=== PATIENT | female | born 1925 | race Two or more races ===

== ENCOUNTER 2016-07-22 12:01 | Inpatient (IN) | payer OTHER ==
[~2016-07-22] VITALS: Ht 149.9 cm; Wt 54.4 kg
[2016-07-22 12:14] VITALS: BP 132/58
[2016-07-22] MEDS ORDERED: MAG HYDROX/AL HYDROX/SIMETH 30 ML UDC PO PRN (14:00)
[2016-07-22] MEDS ORDERED: ACETAMINOPHEN 325 MG TABLET PO PRN (14:00)
[2016-07-22] MEDS ORDERED: Z GUARD REMEDY 2 OZ OINT TP PRN (14:00)
[2016-07-22] MEDS ORDERED: ONDANSETRON HCL/PF 4 MG/2 ML VIAL IVP PRN (14:00)
[2016-07-22] MEDS ORDERED: IV SET PRIMARY PUMP SET 1 EA INFUS.SET MC ONE (14:54)
[2016-07-22] MEDS: IV NS 0.9% 1,000 ML IV PRN (14:58)
[2016-07-22 16:00] VITALS: BP 142/71
[2016-07-22] MEDS: HYDROCODONE/APAP 5/325MG 1 EACH TABLET PO PRN (16:08)
[2016-07-22] MEDS ORDERED: DEXTROSE 50%-WATER 50 ML DISP.SYRIN IV PRN (16:30)
[2016-07-22 17:00] VITALS: BP 146/82
[2016-07-22 17:23] LABS: BASOPHILS % (AUTO) 0.5 % (0.0-2.0); DIFF TOTAL % 100 %; EOSINOPHILS % (AUTO) 0.3 % (0.0-6.0); HEMATOCRIT 35 % (33-45); HEMOGLOBIN 11.6 g/dL (11.5-14.8); LYMPHOCYTES # (AUTO) 0.4 /CMM (0.8-4.8); LYMPHOCYTES % (AUTO) 5.3 % (20.0-44.0); MEAN CORPUSCULAR HEMOGLOBIN 29 PG (26.0-33.0); MEAN CORPUSCULAR HGB CONC 33 g/dl (31.0-36.0); MEAN CORPUSCULAR VOLUME 87 fL (82-100); MONOCYTES # (AUTO) 0.3 /CMM (0.1-1.30); MONOCYTES % (AUTO) 4.2 % (2.0-12.0); NEUTROPHILS # (AUTO) 7.2 /CMM (1.8-8.9); NEUTROPHILS % (AUTO) 89.7 % (43.0-81.0); PLATELET COUNT (AUTO) 249 /CMM (150-450); RED BLOOD CELL COUNT(AUTO) 4.03 MIL/uL (4.0-5.2); WHITE BLOOD COUNT (AUTO) 8.1 K/uL (4.3-11.0)
[2016-07-22 17:32] LABS: CALCIUM, SERUM 8.4 mg/dL (8.5-10.1); CREATININE 1.2 mg/dL (0.6-1.3); POTASSIUM 3.8 mmol/L (3.5-5.1)
[2016-07-22] MEDS ORDERED: ASPI-605 PO (17:36)
[2016-07-22] MEDS ORDERED: METF500T4 PO (17:36)
[2016-07-22] MEDS ORDERED: SIMV20TA6 PO (17:36)
[2016-07-22] MEDS ORDERED: BENZ-13 PO (17:36)
[2016-07-22] MEDS ORDERED: LOSA50TA21 PO (17:36)
[2016-07-22] MEDS ORDERED: ESTR-7 PO (17:36)
[2016-07-22] MEDS ORDERED: CALC1TAB87 PO (17:36)
[2016-07-22 17:38] LABS: ALBUMIN 2.8 g/dL (3.4-5.0); BILIRUBIN,TOTAL 0.5 mg/dL (0.2-1.0); TOTAL PROTEIN, SERUM 6.5 g/dL (6.4-8.2)
[2016-07-22] MEDS: BLOOD SUGAR DIAGNOSTIC 1 EACH STRIP IN SCH ×2 (17:45→21:38)
[2016-07-22 17:49] LABS: TROPONIN I 0.021 ng/mL (0.00-0.056)
[2016-07-22] MEDS: INSULIN REGULAR, HUMAN 100 UNIT/ML 3 ML VIAL SQ PRN ×2 (17:58→21:41)
[2016-07-22 18:00] LABS: INR 1.04 (0.87-1.13); PROTHROMBIN TIME 10.9 SECS (9.5-12.7)
[2016-07-22] MEDS: MORPHINE SULFATE INJ 2 MG/ML DISP.SYRIN IV PRN (18:36)
[2016-07-22 19:51] VITALS: BP 134/72
[2016-07-22 20:00] VITALS: BP 134/72
[2016-07-22 20:43] LABS: KETONES,URINE 1+ (NEGATIVE); LEUKOCYTE ESTERASE ,URINE NEGATIVE (NEGATIVE)
[2016-07-22 20:44] LABS: ADD UA MICROSCOPIC YES
[2016-07-22 20:59] LABS: ADD URINE CULTURE YES
[2016-07-22] MEDS: ATORVASTATIN 10 MG TABLET PO SCH (21:36)
[2016-07-22] MEDS: CARVEDILOL 6.25 MG TABLET PO SCH (21:36)
[2016-07-22] MEDS ORDERED: ZOLPIDEM TARTRATE 5 MG TABLET PO PRN (22:00)
[2016-07-22] MEDS ORDERED: Magnesium 1GM/D5W 100ML PREMIX 300 ML IV ONE (23:48)
[2016-07-22] MEDS ORDERED: SECONDARY IV SET 1 EA INFUS.SET MC ONE (23:53)
[2016-07-22] MEDS: Magnesium 1GM/D5W 100ML PREMIX 100 ML IV SCH (23:57)
[2016-07-23] VITALS (7 sets, daily range): BP systolic 118–158; BP diastolic 45–85
[2016-07-23] MEDS: Magnesium 1GM/D5W 100ML PREMIX 100 ML IV SCH ×2 (00:59→02:15)
[2016-07-23] MEDS: BLOOD SUGAR DIAGNOSTIC 1 EACH STRIP IN SCH ×4 (06:30→21:31)
[2016-07-23] MEDS: MORPHINE SULFATE INJ 2 MG/ML DISP.SYRIN IV PRN ×2 (06:38→13:46)
[2016-07-23] MEDS: INSULIN REGULAR, HUMAN 100 UNIT/ML 3 ML VIAL SQ PRN ×4 (06:40→21:34)
[2016-07-23 08:01] LABS: BASOPHILS % (AUTO) 0.7 % (0.0-2.0); DIFF TOTAL % 100 %; EOSINOPHILS # (AUTO) 0.2 /CMM (0.0-0.7); EOSINOPHILS % (AUTO) 2.8 % (0.0-6.0); HEMATOCRIT 33 % (33-45); LYMPHOCYTES # (AUTO) 0.6 /CMM (0.8-4.8); LYMPHOCYTES % (AUTO) 10.6 % (20.0-44.0); MEAN CORPUSCULAR HEMOGLOBIN 29 PG (26.0-33.0); MEAN CORPUSCULAR HGB CONC 33 g/dl (31.0-36.0); MEAN CORPUSCULAR VOLUME 87 fL (82-100); MONOCYTES # (AUTO) 0.4 /CMM (0.1-1.30); MONOCYTES % (AUTO) 7.1 % (2.0-12.0); NEUTROPHILS # (AUTO) 4.8 /CMM (1.8-8.9); NEUTROPHILS % (AUTO) 78.8 % (43.0-81.0); PLATELET COUNT (AUTO) 239 /CMM (150-450); RED BLOOD CELL COUNT(AUTO) 3.77 MIL/uL (4.0-5.2); WHITE BLOOD COUNT (AUTO) 6.1 K/uL (4.3-11.0)
[2016-07-23 08:17] LABS: CALCIUM, SERUM 8.5 mg/dL (8.5-10.1); CREATININE 1.1 mg/dL (0.6-1.3); PHOSPHORUS 3.3 mg/dL (2.5-4.9); POTASSIUM 3.8 mmol/L (3.5-5.1)
[2016-07-23] MEDS: ASPIRIN 81 MG TAB.CHEW PO SCH (08:17)
[2016-07-23] MEDS: PANTOPRAZOLE 40 MG TABLET.DR PO SCH (08:17)
[2016-07-23] MEDS: CARVEDILOL 6.25 MG TABLET PO SCH ×2 (08:18→21:25)
[2016-07-23] MEDS: IV NS 0.9% 1,000 ML IV PRN (10:12)
[2016-07-23] MEDS ORDERED: ASPIRIN EC 81 MG TABLET.DR PO SCH (11:00)
[2016-07-23] MEDS ORDERED: BENZONATATE 100 MG CAPSULE PO PRN (11:00)
[2016-07-23] MEDS ORDERED: SECONDARY IV SET 1 EA INFUS.SET MC ONE (12:19)
[2016-07-23] MEDS: CEFTRIAXONE 1 G in IV D5W 50 ML IV SCH (12:23)
[2016-07-23] MEDS ORDERED: SIMVASTATIN 20 MG TABLET PO SCH (18:00)
[2016-07-23] MEDS: ATORVASTATIN 10 MG TABLET PO SCH (21:25)
[2016-07-24] MEDS: BLOOD SUGAR DIAGNOSTIC 1 EACH STRIP IN SCH ×4 (06:52→22:59)
[2016-07-24 07:21] LABS: BASOPHILS # (AUTO) 0.1 /CMM (0.0-0.2); BASOPHILS % (AUTO) 0.8 % (0.0-2.0); DIFF TOTAL % 100 %; EOSINOPHILS # (AUTO) 0.2 /CMM (0.0-0.7); EOSINOPHILS % (AUTO) 3.7 % (0.0-6.0); HEMATOCRIT 34 % (33-45); LYMPHOCYTES # (AUTO) 1.1 /CMM (0.8-4.8); LYMPHOCYTES % (AUTO) 18.1 % (20.0-44.0); MEAN CORPUSCULAR HEMOGLOBIN 29 PG (26.0-33.0); MEAN CORPUSCULAR HGB CONC 33 g/dl (31.0-36.0); MEAN CORPUSCULAR VOLUME 88 fL (82-100); MONOCYTES # (AUTO) 0.7 /CMM (0.1-1.30); MONOCYTES % (AUTO) 10.6 % (2.0-12.0); NEUTROPHILS # (AUTO) 4.2 /CMM (1.8-8.9); NEUTROPHILS % (AUTO) 66.8 % (43.0-81.0); PLATELET COUNT (AUTO) 229 /CMM (150-450); WHITE BLOOD COUNT (AUTO) 6.3 K/uL (4.3-11.0)
[2016-07-24] MEDS: PANTOPRAZOLE 40 MG TABLET.DR PO SCH (07:30)
[2016-07-24 07:56] LABS: CALCIUM, SERUM 8.5 mg/dL (8.5-10.1); CREATININE 1.2 mg/dL (0.6-1.3); POTASSIUM 3.9 mmol/L (3.5-5.1)
[2016-07-24 08:00] VITALS: BP 140/75
[2016-07-24] MEDS: CARVEDILOL 6.25 MG TABLET PO SCH ×2 (08:32→22:44)
[2016-07-24] MEDS: ASPIRIN 81 MG TAB.CHEW PO SCH (08:33)
[2016-07-24] MEDS: LOSARTAN POTASSIUM 50 MG TABLET PO SCH (08:33)
[2016-07-24] MEDS: CEFTRIAXONE 1 G in IV D5W 50 ML IV SCH (11:29)
[2016-07-24] MEDS: INSULIN REGULAR, HUMAN 100 UNIT/ML 3 ML VIAL SQ PRN ×2 (11:34→23:39)
[2016-07-24] MEDS ORDERED: FENTANYL PF 100MCG/2ML AMPUL ONE (16:25)
[2016-07-24] MEDS ORDERED: ROCURONIUM BROMIDE 50 MG/5 ML ONE (16:25)
[2016-07-24] MEDS ORDERED: BACITRACIN 50000 UNITS/VIAL ONE (16:58)
[2016-07-24] MEDS ORDERED: BUPIVACAINE 0.5 % PF 150 MG/30 ML VIAL ONE (16:58)
[2016-07-24] MEDS ORDERED: TRANEXAMIC ACID 3,000 MG in SODIUM CHLORIDE IRRIG SOLUTION 70 ML IR ONE (17:30)
[2016-07-24 20:00] VITALS: BP 158/65
[2016-07-24 22:00] VITALS: BP 158/65
[2016-07-24] MEDS: ATORVASTATIN 10 MG TABLET PO SCH (22:43)
[2016-07-24] MEDS: MORPHINE SULFATE INJ 2 MG/ML DISP.SYRIN IV PRN (22:48)
[2016-07-25] MEDS: ANCEF 1 GM/50 ML D5W IV SCH ×6 (01:42→17:00)
[2016-07-25] MEDS: BLOOD SUGAR DIAGNOSTIC 1 EACH STRIP IN SCH ×4 (06:36→21:24)
[2016-07-25] MEDS: INSULIN REGULAR, HUMAN 100 UNIT/ML 3 ML VIAL SQ PRN ×3 (06:38→21:41)
[2016-07-25 07:58] LABS: BASOPHILS % (AUTO) 0.1 % (0.0-2.0); DIFF TOTAL % 100 %; EOSINOPHILS % (AUTO) 0.2 % (0.0-6.0); HEMATOCRIT 32 % (33-45); HEMOGLOBIN 10.6 g/dL (11.5-14.8); LYMPHOCYTES # (AUTO) 0.4 /CMM (0.8-4.8); LYMPHOCYTES % (AUTO) 4.6 % (20.0-44.0); MEAN CORPUSCULAR HEMOGLOBIN 29 PG (26.0-33.0); MEAN CORPUSCULAR HGB CONC 33 g/dl (31.0-36.0); MEAN CORPUSCULAR VOLUME 88 fL (82-100); MONOCYTES # (AUTO) 0.7 /CMM (0.1-1.30); MONOCYTES % (AUTO) 8.7 % (2.0-12.0); NEUTROPHILS # (AUTO) 7.4 /CMM (1.8-8.9); NEUTROPHILS % (AUTO) 86.4 % (43.0-81.0); PLATELET COUNT (AUTO) 237 /CMM (150-450); WHITE BLOOD COUNT (AUTO) 8.5 K/uL (4.3-11.0)
[2016-07-25 08:00] VITALS: BP 141/70
[2016-07-25 08:09] LABS: CALCIUM, SERUM 8.2 mg/dL (8.5-10.1); CREATININE 1.4 mg/dL (0.6-1.3); POTASSIUM 4.4 mmol/L (3.5-5.1)
[2016-07-25] MEDS: HYDROCODONE/APAP 5/325MG 1 EACH TABLET PO PRN (08:54)
[2016-07-25] MEDS: LOSARTAN POTASSIUM 50 MG TABLET PO SCH (08:54)
[2016-07-25] MEDS: ASPIRIN 81 MG TAB.CHEW PO SCH (08:55)
[2016-07-25] MEDS: PANTOPRAZOLE 40 MG TABLET.DR PO SCH (08:55)
[2016-07-25] MEDS: CARVEDILOL 6.25 MG TABLET PO SCH ×2 (08:55→21:40)
[2016-07-25 14:10] VITALS: BP 116/73
[2016-07-25] MEDS ORDERED: hydrALAZINE HCL 10 MG TABLET PO PRN (14:30)
[2016-07-25 14:47] LABS: BASOPHILS % (AUTO) 0.4 % (0.0-2.0); DIFF TOTAL % 100 %; EOSINOPHILS % (AUTO) 0.1 % (0.0-6.0); HEMATOCRIT 29 % (33-45); HEMOGLOBIN 9.6 g/dL (11.5-14.8); LYMPHOCYTES # (AUTO) 0.7 /CMM (0.8-4.8); LYMPHOCYTES % (AUTO) 6.5 % (20.0-44.0); MEAN CORPUSCULAR HEMOGLOBIN 29 PG (26.0-33.0); MEAN CORPUSCULAR HGB CONC 33 g/dl (31.0-36.0); MEAN CORPUSCULAR VOLUME 88 fL (82-100); MONOCYTES # (AUTO) 1.3 /CMM (0.1-1.30); MONOCYTES % (AUTO) 12.4 % (2.0-12.0); NEUTROPHILS # (AUTO) 8.6 /CMM (1.8-8.9); NEUTROPHILS % (AUTO) 80.6 % (43.0-81.0); PLATELET COUNT (AUTO) 262 /CMM (150-450); WHITE BLOOD COUNT (AUTO) 10.6 K/uL (4.3-11.0)
[2016-07-25 14:48] LABS: ANION GAP 14 (5-14); CALCIUM, SERUM 8.1 mg/dL (8.5-10.1); CARBON DIOXIDE 22 mmol/L (21-32); CHLORIDE 106 mmol/L (98-107); CREATININE 1.6 mg/dL (0.6-1.3); GLUCOSE 326 mg/dL (74-106); POTASSIUM 4.7 mmol/L (3.5-5.1); SODIUM SERUM 137 mmol/L (136-145); UREA NITROGEN, BLOOD 43 mg/dL (7-18)
[2016-07-25 14:57] LABS: TROPONIN I < 0.017 ng/mL (0.00-0.056)
[2016-07-25 15:03] LABS: INR 0.99 (0.87-1.13); PROTHROMBIN TIME 10.7 SECS (9.5-12.7)
[2016-07-25 16:00] VITALS: BP 113/60
[2016-07-25] MEDS: ENOXAPARIN SODIUM 30 MG/0.3 ML DISP.SYRIN SQ SCH (16:00)
[2016-07-25] MEDS ORDERED: ENOXAPARIN SODIUM 40 MG/0.4 ML DISP.SYRIN SQ SCH (16:00)
[2016-07-25 20:00] VITALS: BP 112/54
[2016-07-25 20:25] VITALS: BP 112/54
[2016-07-25] MEDS: ATORVASTATIN 40 MG TABLET PO SCH (21:40)
[2016-07-26] VITALS (7 sets, daily range): BP systolic 112–140; BP diastolic 50–66
[2016-07-26] MEDS: BLOOD SUGAR DIAGNOSTIC 1 EACH STRIP IN SCH ×4 (05:19→21:31)
[2016-07-26] MEDS: INSULIN REGULAR, HUMAN 100 UNIT/ML 3 ML VIAL SQ PRN ×4 (05:28→21:33)
[2016-07-26] MEDS: MORPHINE SULFATE INJ 2 MG/ML DISP.SYRIN IV PRN ×2 (05:54→22:40)
[2016-07-26 07:45] LABS: BASOPHILS % (AUTO) 0.5 % (0.0-2.0); DIFF TOTAL % 100 %; EOSINOPHILS # (AUTO) 0.2 /CMM (0.0-0.7); EOSINOPHILS % (AUTO) 2.5 % (0.0-6.0); HEMATOCRIT 28 % (33-45); HEMOGLOBIN 9.4 g/dL (11.5-14.8); LYMPHOCYTES # (AUTO) 0.9 /CMM (0.8-4.8); LYMPHOCYTES % (AUTO) 11.7 % (20.0-44.0); MEAN CORPUSCULAR HEMOGLOBIN 29 PG (26.0-33.0); MEAN CORPUSCULAR HGB CONC 33 g/dl (31.0-36.0); MEAN CORPUSCULAR VOLUME 88 fL (82-100); MONOCYTES # (AUTO) 1.1 /CMM (0.1-1.30); MONOCYTES % (AUTO) 14.2 % (2.0-12.0); NEUTROPHILS # (AUTO) 5.4 /CMM (1.8-8.9); NEUTROPHILS % (AUTO) 71.1 % (43.0-81.0); PLATELET COUNT (AUTO) 220 /CMM (150-450); WHITE BLOOD COUNT (AUTO) 7.7 K/uL (4.3-11.0)
[2016-07-26 07:58] LABS: CALCIUM, SERUM 8.2 mg/dL (8.5-10.1); CREATININE 1.6 mg/dL (0.6-1.3); PHOSPHORUS 3.8 mg/dL (2.5-4.9); POTASSIUM 4.7 mmol/L (3.5-5.1)
[2016-07-26] MEDS: CARVEDILOL 6.25 MG TABLET PO SCH ×2 (08:52→21:37)
[2016-07-26] MEDS: ASPIRIN 81 MG TAB.CHEW PO SCH (08:52)
[2016-07-26] MEDS: PANTOPRAZOLE 40 MG TABLET.DR PO SCH (08:52)
[2016-07-26] MEDS: CEFTRIAXONE 1 G in IV D5W 50 ML IV SCH (08:52)
[2016-07-26] MEDS ORDERED: SECONDARY IV SET 1 EA INFUS.SET MC ONE (09:00)
[2016-07-26] MEDS ORDERED: IV NS 0.9% 250 ML IV ONE (09:00)
[2016-07-26] MEDS: HYDROCODONE/APAP 5/325MG 1 EACH TABLET PO PRN (11:45)
[2016-07-26] MEDS: BOOST GLUCOSE CONTROL VANILLA 237 ML BOX PO SCH (17:36)
[2016-07-26] MEDS: MAGNESIUM HYDROXIDE 30 ML UDC PO PRN (18:07)
[2016-07-26] MEDS: ENOXAPARIN SODIUM 30 MG/0.3 ML DISP.SYRIN SQ SCH (21:36)
[2016-07-26] MEDS: ATORVASTATIN 40 MG TABLET PO SCH (22:39)
[2016-07-27] MEDS: INSULIN REGULAR, HUMAN 100 UNIT/ML 3 ML VIAL SQ PRN ×4 (05:26→21:45)
[2016-07-27] MEDS: BLOOD SUGAR DIAGNOSTIC 1 EACH STRIP IN SCH ×4 (05:28→21:43)
[2016-07-27 07:48] LABS: BASOPHILS % (AUTO) 0.7 % (0.0-2.0); DIFF TOTAL % 100 %; EOSINOPHILS # (AUTO) 0.2 /CMM (0.0-0.7); EOSINOPHILS % (AUTO) 3.1 % (0.0-6.0); HEMATOCRIT 26 % (33-45); HEMOGLOBIN 8.5 g/dL (11.5-14.8); LYMPHOCYTES # (AUTO) 1.1 /CMM (0.8-4.8); LYMPHOCYTES % (AUTO) 16.4 % (20.0-44.0); MEAN CORPUSCULAR HEMOGLOBIN 29 PG (26.0-33.0); MEAN CORPUSCULAR HGB CONC 33 g/dl (31.0-36.0); MEAN CORPUSCULAR VOLUME 88 fL (82-100); MONOCYTES # (AUTO) 0.8 /CMM (0.1-1.30); MONOCYTES % (AUTO) 12.1 % (2.0-12.0); NEUTROPHILS # (AUTO) 4.7 /CMM (1.8-8.9); NEUTROPHILS % (AUTO) 67.7 % (43.0-81.0); PLATELET COUNT (AUTO) 226 /CMM (150-450); RED BLOOD CELL COUNT(AUTO) 2.93 MIL/uL (4.0-5.2); WHITE BLOOD COUNT (AUTO) 6.9 K/uL (4.3-11.0)
[2016-07-27 08:00] VITALS: BP_SYST 123; BP_SYST 135; BP_DIAS 50; BP_DIAS 68
[2016-07-27 08:10] LABS: CREATININE 1.2 mg/dL (0.6-1.3); PHOSPHORUS 2.3 mg/dL (2.5-4.9); POTASSIUM 4.9 mmol/L (3.5-5.1)
[2016-07-27] MEDS: ASPIRIN 81 MG TAB.CHEW PO SCH (08:35)
[2016-07-27] MEDS: PANTOPRAZOLE 40 MG TABLET.DR PO SCH (08:35)
[2016-07-27] MEDS: CEFTRIAXONE 1 G in IV D5W 50 ML IV SCH (08:35)
[2016-07-27] MEDS: CARVEDILOL 6.25 MG TABLET PO SCH ×2 (08:36→21:09)
[2016-07-27] MEDS ORDERED: IV NS 0.9% 1,000 ML ONE (08:39)
[2016-07-27] MEDS ORDERED: IV SET PRIMARY PUMP SET 1 EA INFUS.SET MC ONE (08:39)
[2016-07-27] MEDS ORDERED: K PHOS NEUTRAL 250 MG TABLET PO ONE (12:30)
[2016-07-27] MEDS: BOOST GLUCOSE CONTROL VANILLA 237 ML BOX PO SCH ×2 (12:41→17:04)
[2016-07-27 16:00] VITALS: BP 124/72
[2016-07-27] MEDS: ATORVASTATIN 40 MG TABLET PO SCH (21:09)
[2016-07-27] MEDS: ENOXAPARIN SODIUM 30 MG/0.3 ML DISP.SYRIN SQ SCH (21:10)
[2016-07-27] MEDS: MAGNESIUM HYDROXIDE 30 ML UDC PO PRN (21:29)
[2016-07-27 22:00] VITALS: BP 133/76
[2016-07-28] MEDS: BLOOD SUGAR DIAGNOSTIC 1 EACH STRIP IN SCH ×4 (06:36→21:42)
[2016-07-28] MEDS: INSULIN REGULAR, HUMAN 100 UNIT/ML 3 ML VIAL SQ PRN ×4 (06:39→21:50)
[2016-07-28 06:56] LABS: BASOPHILS % (AUTO) 0.7 % (0.0-2.0); DIFF TOTAL % 100 %; EOSINOPHILS # (AUTO) 0.2 /CMM (0.0-0.7); EOSINOPHILS % (AUTO) 3.4 % (0.0-6.0); HEMATOCRIT 26 % (33-45); HEMOGLOBIN 8.3 g/dL (11.5-14.8); LYMPHOCYTES # (AUTO) 1.1 /CMM (0.8-4.8); LYMPHOCYTES % (AUTO) 16.1 % (20.0-44.0); MEAN CORPUSCULAR HEMOGLOBIN 29 PG (26.0-33.0); MEAN CORPUSCULAR HGB CONC 33 g/dl (31.0-36.0); MEAN CORPUSCULAR VOLUME 88 fL (82-100); MONOCYTES # (AUTO) 0.9 /CMM (0.1-1.30); MONOCYTES % (AUTO) 12.6 % (2.0-12.0); NEUTROPHILS # (AUTO) 4.7 /CMM (1.8-8.9); NEUTROPHILS % (AUTO) 67.2 % (43.0-81.0); PLATELET COUNT (AUTO) 246 /CMM (150-450); WHITE BLOOD COUNT (AUTO) 7.1 K/uL (4.3-11.0)
[2016-07-28 07:11] LABS: CALCIUM, SERUM 8.2 mg/dL (8.5-10.1); CREATININE 1.2 mg/dL (0.6-1.3); PHOSPHORUS 2.3 mg/dL (2.5-4.9); POTASSIUM 4.8 mmol/L (3.5-5.1)
[2016-07-28 08:00] VITALS: BP 110/47
[2016-07-28] MEDS: PANTOPRAZOLE 40 MG TABLET.DR PO SCH (08:29)
[2016-07-28] MEDS: ASPIRIN 81 MG TAB.CHEW PO SCH (08:29)
[2016-07-28] MEDS: BOOST GLUCOSE CONTROL VANILLA 237 ML BOX PO SCH ×2 (08:31→17:00)
[2016-07-28] MEDS: CEFTRIAXONE 1 G in IV D5W 50 ML IV SCH (08:31)
[2016-07-28] MEDS: CARVEDILOL 6.25 MG TABLET PO SCH ×2 (08:32→21:33)
[2016-07-28] MEDS: HYDROCODONE/APAP 5/325MG 1 EACH TABLET PO PRN (12:36)
[2016-07-28] MEDS ORDERED: K PHOS NEUTRAL 250 MG TABLET PO ONE (13:30)
[2016-07-28 16:00] VITALS: BP 106/55
[2016-07-28 20:00] VITALS: BP 121/48
[2016-07-28 20:26] VITALS: BP 121/48
[2016-07-28] MEDS: ATORVASTATIN 40 MG TABLET PO SCH (21:33)
[2016-07-28] MEDS: ENOXAPARIN SODIUM 30 MG/0.3 ML DISP.SYRIN SQ SCH (21:34)
[2016-07-28] MEDS: MAGNESIUM HYDROXIDE 30 ML UDC PO PRN (21:57)
[2016-07-29] MEDS: BLOOD SUGAR DIAGNOSTIC 1 EACH STRIP IN SCH ×4 (05:38→20:47)
[2016-07-29 07:48] VITALS: BP 135/54
[2016-07-29 08:00] VITALS: BP 135/54
[2016-07-29 08:07] LABS: CALCIUM, SERUM 8.3 mg/dL (8.5-10.1); CREATININE 1.2 mg/dL (0.6-1.3); PHOSPHORUS 2.9 mg/dL (2.5-4.9); POTASSIUM 4.9 mmol/L (3.5-5.1)
[2016-07-29] MEDS: PANTOPRAZOLE 40 MG TABLET.DR PO SCH (08:26)
[2016-07-29] MEDS: ASPIRIN 81 MG TAB.CHEW PO SCH (08:26)
[2016-07-29] MEDS: CARVEDILOL 6.25 MG TABLET PO SCH ×2 (08:26→20:46)
[2016-07-29] MEDS: CEFTRIAXONE 1 G in IV D5W 50 ML IV SCH (08:27)
[2016-07-29] MEDS: BOOST GLUCOSE CONTROL VANILLA 237 ML BOX PO SCH ×2 (08:29→16:27)
[2016-07-29] MEDS ORDERED: SENNOSIDES 8.6 MG TABLET PO ONE (11:30)
[2016-07-29] MEDS ORDERED: BISACODYL SUPP (10 MG) 10 MG/SUPP.RECT SUPP.RECT RC ONE (11:30)
[2016-07-29] MEDS: INSULIN REGULAR, HUMAN 100 UNIT/ML 3 ML VIAL SQ PRN ×3 (11:51→20:56)
[2016-07-29] MEDS ORDERED: CARV6.252 PO (12:57)
[2016-07-29] MEDS ORDERED: ENOX30DI SQ (12:57)
[2016-07-29] MEDS ORDERED: HYDR-3326 PO (12:57)
[2016-07-29 16:00] VITALS: BP 138/58
[2016-07-29 20:00] VITALS: BP 132/61
[2016-07-29 20:46] VITALS: BP 132/61
[2016-07-29] MEDS: ATORVASTATIN 40 MG TABLET PO SCH (20:46)
[2016-07-29] MEDS: ENOXAPARIN SODIUM 30 MG/0.3 ML DISP.SYRIN SQ SCH (20:55)
== END 2016-07-29 23:00 | DRG 301 ==
LOC: TELE2 12:01 → TELE 16:49 → MED 07-23 08:59 → TELE 07-25 18:10 → MED 07-26 10:08
PROVIDERS: ADMIT Internal Medicine; ATTEND Internal Medicine
PROC: 0SRS0JZ Replacement of Left Hip Joint, Femoral Surface with Synthetic Substitute, Open Approach (ICD-10-PCS; principal; 2016-07-24 16:40)
DX: S72.002A Fracture of unspecified part of neck of left femur, initial encounter for closed fracture (principal); I21.4 Non-ST elevation (NSTEMI) myocardial infarction; N17.0 Acute kidney failure with tubular necrosis; F03.90 Unspecified dementia, unspecified severity, without behavioral disturbance, psychotic disturbance, mood disturbance, and anxiety; I50.32 Chronic diastolic (congestive) heart failure; E11.9 Type 2 diabetes mellitus without complications; W19.XXXA Unspecified fall, initial encounter; Y92.10 Unspecified residential institution as the place of occurrence of the external cause; E78.5 Hyperlipidemia, unspecified; Z86.73 Personal history of transient ischemic attack (TIA), and cerebral infarction without residual deficits; Z87.891 Personal history of nicotine dependence; I25.10 Atherosclerotic heart disease of native coronary artery without angina pectoris; N18.9 Chronic kidney disease, unspecified; I13.0 Hypertensive heart and chronic kidney disease with heart failure and stage 1 through stage 4 chronic kidney disease, or unspecified chronic kidney disease; K21.9 Gastro-esophageal reflux disease without esophagitis; R53.2 Functional quadriplegia; N39.0 Urinary tract infection, site not specified; B96.20 Unspecified Escherichia coli [E. coli] as the cause of diseases classified elsewhere; E11.22 Type 2 diabetes mellitus with diabetic chronic kidney disease; I35.0 Nonrheumatic aortic (valve) stenosis
CPT/HCPCS: 36415; 70450-TC; 71010-TC; 71111-TC; 73020; 73564-TC; 80048-TC; 80053-TC; 80061-TC; 81000-TC; 82962-TC; 83735-TC; 84100-TC; 84484-TC; 85025-TC; 85610-TC; 85730-TC; 86850-TC; 86921-TC; 87081-TC; 87086-TC; 87186-TC; 88305-TC; 88311-TC; 92526; 92611-TC; 93307-TC; 94799-TC; 97001-TC; 97110-TC; 97116-TC; 97530-TC; A4217; A6209; A6402; J0690; J0696; J1650; J1815; J2270; J3010; J3475; J3490; J7030; J7050; J7060; Z7610